=== PATIENT | female | born 1985 | race Caucasian/White ===

== ENCOUNTER 2019-06-22 09:17 | Emergency (ER) | payer OTHER ==
[~2019-06-22] VITALS: Ht 160 cm; Wt 59.0 kg
--- NOTE | 2019-06-22 09:30 | NUR ---
PATIENT TO ER #6 AND PLACED ON OPTOMETRIC COORDINATOR, SAO2 AND ABP
[2019-06-22 09:31] VITALS: BP_SYST 127
[2019-06-22] MEDS ORDERED: CALC-740 PO (09:31)
[2019-06-22] MEDS ORDERED: IBUP-1969 PO (09:31)
--- NOTE | 2019-06-22 09:32 | NUR ---
Patient arrived via POV, AAOx4, and ambulatory. Patient c/c of abdominal tenderness and chest wall pain with deep inspiration. Patient states she had surgery at [facility] with Dr. Lupe Jaramillo, for fallopian tube removal and endometriosis and fibroid removal on 06/05/2019. Patient flew on airplane yesterday from [place]. Patient states last night chest pain began. Patient notes she took 600mg ibuprofen this AM to help with pain. Pain was relieved by ibuprofen. Patient has 4 incision sites to lower abdomen secured by dermabond, no redness, warmth, or drainage from the sites. Patient is non tachycardic, and patients oxygen saturation is WNL, and patient has no tachypnea present. Patient placed on air sampling and monitoring. Will continue to follow up and monitor.
[2019-06-22] MEDS ORDERED: KETOROLAC TROMETHAMINE 15 MG VIAL IVP ONE (10:00)
[2019-06-22 10:26] LABS: BASOPHILS # (AUTO) 0.1 K/uL (0.0-0.2); BASOPHILS % (AUTO) 1.1 % (0.0-2.0); EOSINOPHILS # (AUTO) 0.4 K/uL (0.0-0.4); HEMATOCRIT 31.6 % (36-48); HEMOGLOBIN 10.5 g/dL (12.0-16.0); LYMPHOCYTES # (AUTO) 0.8 K/uL (1.0-5.5); LYMPHOCYTES % (AUTO) 11.7 % (20.5-51.5); MEAN CORPUSCULAR HEMOGLOBIN 29 pg (27-31); MEAN CORPUSCULAR HGB CONC 33 % (32-36); MEAN CORPUSCULAR VOLUME 88 fL (79.0-98.0); MONOCYTES # (AUTO) 0.4 K/uL (0.0-1.0); MONOCYTES % (AUTO) 5.4 % (1.7-9.3); NEUTROPHILS # (AUTO) 5.5 K/uL (1.8-7.7); NEUTROPHILS % (AUTO) 76.8 % (40.0-70.0); PLATELET COUNT (AUTO) 498 K/uL (130-430); RED BLOOD CELL COUNT(AUTO) 3.59 MIL/uL (4.2-6.2); RED CELL DISTRIBUTION WIDTH 15.2 % (9.0-15.0); WHITE BLOOD COUNT (AUTO) 7.2 K/uL (4.8-10.8)
[2019-06-22] MEDS ORDERED: IOHEXOL 350 mgI/mL, 150 ML INFUS..BTL IV ONE (10:32)
[2019-06-22 10:33] LABS: ANION GAP 9 (5-15); CALCIUM 8.7 mg/dL (8.4-11.0); CHLORIDE 102 mmol/L (98-107); CREATININE 0.68 mg/dL (0.55-1.30); GLUCOSE 88 mg/dL (70-99); SODIUM SERUM 137 mmol/L (136-145); UREA NITROGEN, BLOOD 11 mg/dL (8-21)
[2019-06-22 10:35] LABS: INR 0.9 (0.8-1.2); PROTHROMBIN TIME 9.5 SECS (9.5-12.5)
[2019-06-22 10:46] LABS: ALANINE AMINOTRANSFERASE 15 U/L (12-78); ALBUMIN 3.1 g/dL (3.4-4.8); ASPARTATE AMINOTRANSFERASE 9 U/L (10-37); LIPASE 263 U/L (73-393); TOTAL BILIRUBIN 0.3 mg/dL (0.0-1.0)
[2019-06-22 10:47] LABS: GFR AFRICAN AMERICAN 130 mL/min (>90)
--- NOTE | 2019-06-22 11:08 | NUR ---
Patient transported to radiology via GURNEY, accompanied by CT STAFF.
--- NOTE | 2019-06-22 11:19 | NUR ---
Patient brought back from CT scan via gurney. Will follow up regarding results.
[2019-06-22] MEDS ORDERED: ALBUTEROL SULFATE 0.083% 2.5 MG/3 ML VIAL.NEB INH ONE (12:00)
[2019-06-22] MEDS ORDERED: cefTRIAXone 1 GM in D5W 50 ML IV ONE (12:00)
[2019-06-22] MEDS ORDERED: cefTRIAXone 1 GM VIAL ONE (12:12)
[2019-06-22 12:40] VITALS: BP_SYST 112
--- NOTE | 2019-06-22 12:40 | NUR ---
Patient given written and verbal discharge instructions and verbalizes understanding. ER MD discussed with patient the results and treatment provided. Patient in stable condition. ID arm band removed. IV catheter removed intact and dressing applied, no active bleeding. Rx of Zithromax and Albuterol given. Patient educated on pain management and to follow up with PMD. Pain Scale 0/10. Opportunity for questions answered. Medication side effect fact sheet provided. Patient sent with work note, disk of CT, and patient filled out of medical record release prior to discharge.
== END 2019-06-22 12:40 | disposition home or self-care (01) ==
LOC: SED 09:17
DX: J18.9 Pneumonia, unspecified organism (principal); J90 Pleural effusion, not elsewhere classified
CPT/HCPCS: 36415; 71045; 71275; 74177; 80053; 83690; 83880; 84484; 84703; 85025; 85379; 85610; 85730; 93005; 94640; 96365; 96375; 99285; J0696; J1885; J7613; Q9967